=== PATIENT | female | born 2000 | race African-American/Black ===

== ENCOUNTER 2022-03-06 05:43 | Inpatient (IN) ==
[2022-03-06] MEDS ORDERED: LACTATED RINGERS 250 ML IV ONE (06:21)
[2022-03-06] MEDS ORDERED: LACTATED RINGERS 500 ML IV PRN (06:21)
[2022-03-06] MEDS ORDERED: MEPERIDINE 50 MG/1 ML VIAL IV PRN ×2 (06:21→06:26)
[2022-03-06] MEDS ORDERED: METHYLERGONOVINE 0.2 MG/1 ML AMP IM PRN (06:21)
[2022-03-06] MEDS ORDERED: BUTORPHANOL 1 MG/ML VIAL IV PRN (06:21)
[2022-03-06] MEDS ORDERED: BUTORPHANOL 2 MG/ML VIAL IV PRN (06:21)
[2022-03-06] MEDS ORDERED: ACETAMINOPHEN 500 MG TABLET PO PRN ×2 (06:21→20:54)
[2022-03-06] MEDS ORDERED: CARBOPROST TROMETHAMINE 250 MCG/ML AMP IM PRN (06:21)
[2022-03-06] MEDS ORDERED: miSOPROStoL 200 MCG TABLET RECTAL PRN (06:21)
[2022-03-06] MEDS ORDERED: OXYTOCIN/LR 20 UNIT/1,000 ML BAG IV ONE ×3 (06:21→20:54)
[2022-03-06] MEDS ORDERED: ONDANSETRON 4 MG/2 ML VIAL IV PRN ×2 (06:21→20:54)
[2022-03-06] MEDS ORDERED: TRANEXAMIC ACID 1,000 MG in SODIUM CHLORIDE 0.9% 100 ML IV PRN (06:21)
[2022-03-06] MEDS ORDERED: LACTATED RINGERS 1,000 ML IV SCH (06:30)
[2022-03-06] MEDS: OXYTOCIN/LR 20 UNIT/1,000 ML BAG IV SCH ×2 (06:43→19:47)
[2022-03-06 06:48] LABS: Basophils % 0.4 % (0.0-0.8); Eosinophils # 0.1 10*3/uL (0.0-0.87); Eosinophils % 1.3 % (0.00-10.9); Hemoglobin 11.7 GM/DL (12.0-16.0); Immature Granulocytes % 0.4 %; Immature Granulocytes Absolute 0.03 #; Lymphocytes # 1.9 10*3/uL (1.4-4.0); Lymphocytes % 27.7 % (21.3-54.2); Mean Corpuscular HGB Conc 32.5 GM/DL (32-36); Monocytes # 0.7 10*3/uL (0.11-0.8); Neutrophils % 60.2 % (38.7-73.9); Platelet Count 167 T/CUMM (130-400); Red Blood Count 4.14 MC/CUMM (3.8-5.5); Red Cell Distribution Width 14.7 % (9.3-17.3); White Blood Count 6.9 T/CUMM (4-12)
[2022-03-06 07:13] LABS: Alanine Aminotransferase 23 U/L (13-56); Albumin 2.7 G/DL (3.4-5.0); Alkaline Phosphatase 251 U/L (45-117); Aspartate Amino Transferase 26 U/L (0-37); Bilirubin,Total < 0.39 MG/DL (0.20-1.00); Blood Urea Nitrogen 7 MG/DL (7-18); Calcium 8.9 MG/DL (8.5-10.1); Carbon Dioxide 20 MMOL/L (21-32); Chloride 109 MMOL/L (98-107); Glucose 77 MG/DL (74-106); Osmolality,Calculated 269.8 MOS/KG (273-304); Potassium 3.6 MMOL/L (3.5-5.1); Sodium 137 MMOL/L (136-145); Total Protein 7.1 G/DL (6.4-8.2)
[2022-03-06 07:33] LABS: INR 0.9; PT Patient Result 9.8 SECS (10.1-12.1); Partial Thromboplastin Time 30.8 SECS (23.7-32.9)
[2022-03-06 08:05] LABS: Bilirubin,Direct < 0.100 MG/DL (0.0-0.20); Uric Acid 5.6 MG/DL (2.6-6.0)
[2022-03-06 08:27] LABS: Bacteria,Urine Occasional /HPF (Few); Bilirubin,Urine Negative (Negative); Blood, Urine Trace mg/dL (Negative); Glucose,Urine (UA) Negative (Negative); Ketones,Urine Negative (Negative); Mucus,Urine Occasional /LPF (Occasional); Nitrite,Urine Negative (Negative); Protein,Urine 30 mg/dL (Negative); RBC,Urine 5 /HPF (0-4); Squamous Epithelial Cell,Urine Moderate /HPF (0-10); Urine Appearance Clear (Clear); Urine Color Yellow (Yellow); Urine Urobilinogen 0.2 eU/dL (<2.0)
[2022-03-06] MEDS ORDERED: LABETALOL 100 MG/20 ML VIAL IV ONE (08:45)
[2022-03-06 08:52] LABS: Protein/Creatinine Ratio,Urine 0.4 RATIO
[2022-03-06] MEDS ORDERED: diphenhydrAMINE 50 MG/1 ML VIAL IV PRN ×2 (10:02)
[2022-03-06] MEDS ORDERED: NALOXONE 0.4 MG/ML VIAL IV PRN (10:02)
[2022-03-06] MEDS ORDERED: CITRIC ACID/SODIUM CITRATE 30 ML UDCUP PO ONE (10:02)
[2022-03-06] MEDS ORDERED: PROMETHAZINE 25 MG/1 ML VIAL IM ONE (10:02)
[2022-03-06] MEDS ORDERED: hydrOXYzine HCL 25 MG/1 ML VIAL IM PRN (10:02)
[2022-03-06] MEDS ORDERED: FAMOTIDINE 20 MG/2 ML VIAL IV ONE (10:02)
[2022-03-06] MEDS ORDERED: ePHEDrine 50 MG/ML VIAL IV PRN (10:02)
[2022-03-06] MEDS: fentaNYL 2 MCG/ROPIV 0.2% EPID 100 ML EPIDURAL SCH ×2 (11:00→17:21)
[2022-03-06 12:46] LABS: Bacteria,Urine Occasional /HPF (Few); Bilirubin,Urine Negative (Negative); Blood, Urine Negative (Negative); Glucose,Urine (UA) Negative (Negative); Ketones,Urine Negative (Negative); Nitrite,Urine Negative (Negative); Protein,Urine Negative (Negative); RBC,Urine <1 /HPF (0-4); Squamous Epithelial Cell,Urine Occasional /HPF (0-10); Urine Appearance Clear (Clear); Urine Color Light Yellow (Yellow); Urine Urobilinogen 0.2 eU/dL (<2.0)
[2022-03-06] MEDS ORDERED: TRANEXAMIC ACID 1,000 MG/10 ML VIAL ONE (16:23)
[2022-03-06] MEDS ORDERED: miSOPROStoL 200 MCG TABLET ONE (16:23)
[2022-03-06] MEDS ORDERED: METHYLERGONOVINE 0.2 MG/1 ML AMP ONE (16:24)
[2022-03-06] MEDS ORDERED: SODIUM CHLORIDE 0.9% 0 ML IV ONE (16:24)
[2022-03-06] MEDS ORDERED: CARBOPROST TROMETHAMINE 250 MCG/ML AMP IM ONE (16:24)
[2022-03-06 18:47] LABS: Cord Venous Blood HCO3 20.6 MMOL/L; Cord Venous Blood PCO2 41.1 MMHG; Cord Venous Blood PO2 26.9
[2022-03-06] MEDS ORDERED: MAGNESIUM SULF RIDER 2 GM/50 ML PREMIX IV ONE (19:29)
[2022-03-06] MEDS ORDERED: MAGNESIUM SULF DRIP 40 GM/1,000 ML ML IV SCH (19:30)
[2022-03-06] MEDS ORDERED: SIMETHICONE CHEW 80 MG TABLET PO PRN (20:54)
[2022-03-06] MEDS ORDERED: MAGNESIUM HYDROXIDE SUSP 30 ML UDCUP PO PRN (20:54)
[2022-03-06] MEDS ORDERED: RHO(D) IMMUNE GLOBULIN 300 MCG SYRINGE IM ONE (20:54)
[2022-03-06] MEDS ORDERED: diphenhydrAMINE CAP 50 MG CAPSULE PO PRN (21:06)
[2022-03-06] MEDS ORDERED: BENZOCAINE 20%/MENTHOL 0.5% SPRAY 56 GM CAN TOP PRN (21:06)
[2022-03-06] MEDS: diphenhydrAMINE CAP 25 MG CAPSULE PO PRN (21:21)
[2022-03-07] MEDS: LACTATED RINGERS 1,000 ML IV SCH ×3 (02:33→16:37)
[2022-03-07] MEDS: diphenhydrAMINE CAP 25 MG CAPSULE PO PRN (04:00)
[2022-03-07 05:58] LABS: Basophils % 0.2 % (0.0-0.8); Eosinophils % 0.3 % (0.00-10.9); Hematocrit 30.2 VOL% (35.7-47.0); Hemoglobin 9.8 GM/DL (12.0-16.0); Immature Granulocytes % 0.5 %; Immature Granulocytes Absolute 0.06 #; Lymphocytes # 1.6 10*3/uL (1.4-4.0); Lymphocytes % 12.6 % (21.3-54.2); Mean Corpuscular HGB Conc 32.5 GM/DL (32-36); Mean Corpuscular Volume 87.8 FL (87-102); Mean Platelet Volume 11.2 FL (9.6-12.0); Monocytes # 0.9 10*3/uL (0.11-0.8); Neutrophils % 79.4 % (38.7-73.9); Platelet Count 138 T/CUMM (130-400); Red Blood Count 3.44 MC/CUMM (3.8-5.5); White Blood Count 12.4 T/CUMM (4-12)
[2022-03-07 06:14] LABS: Albumin 2.2 G/DL (3.4-5.0); Bilirubin,Total 0.6 MG/DL (0.20-1.00); Calcium 7.9 MG/DL (8.5-10.1); Osmolality,Calculated 269.8 MOS/KG (273-304); Potassium 3.5 MMOL/L (3.5-5.1); Total Protein 5.7 G/DL (6.4-8.2)
[2022-03-07] MEDS: LABETALOL 100 MG TABLET PO SCH ×2 (09:14→21:01)
[2022-03-07] MEDS: MULTIVITAMIN (PRENATAL) TABLET PO SCH (11:41)
[2022-03-07] MEDS: OXYTOCIN/LR 20 UNIT/1,000 ML BAG IV SCH (16:36)
[2022-03-07] MEDS: IBUPROFEN 800 MG TABLET PO PRN (19:08)
[2022-03-07] MEDS: DOCUSATE SODIUM 100 MG CAPSULE PO SCH (21:02)
[2022-03-08] MEDS: IBUPROFEN 800 MG TABLET PO PRN (04:27)
[2022-03-08] MEDS: LABETALOL 100 MG TABLET PO SCH (09:48)
[2022-03-08] MEDS: MULTIVITAMIN (PRENATAL) TABLET PO SCH (09:48)
[2022-03-08] MEDS: DOCUSATE SODIUM 100 MG CAPSULE PO SCH (09:48)
[2022-03-08 12:03] VITALS: BP 130/73
== END 2022-03-08 13:25 | disposition home or self-care (01) | DRG 807 ==
LOC: N.LD 05:43 → N.OB 03-07 14:27
PROVIDERS: ADMIT Obstetrics & Gynecology; ATTEND Obstetrics & Gynecology